=== PATIENT | male | born 1980 | race Caucasian/White ===

== ENCOUNTER 2016-08-31 08:16 | Emergency (ER) | payer MEDICAID ==
[~2016-08-31] VITALS: Wt 80.0 kg
[2016-08-31] MEDS ORDERED: NAPR-260 PO (08:38)
--- NOTE | 2016-08-31 08:46 | ERD ---
ER Documentation Chief Complaint Date/Time DATE: 08/31/16 TIME: 08:40 Chief Complaint BLUNT TRAUMA TO LEFT THIGH 4 DAYS AGO. NO DEFORMITY. HPI This a 36-year-old male who presents to the emergency department today complaining of a bump and some left thigh pain after running into the corner of a cabinet 4 days ago. Patient states he is taking Tylenol for pain. States he is able to walk but does have some pain. Denies any fevers or chills or previous trauma. ROS All systems reviewed and are negative except as per history of present illness. Medications Home Meds Active Scripts Naproxen* (Naprosyn*) 500 Mg Tablet, 500 MG PO BID Y for PAIN AND/OR INFLAMMATION, #30 TAB Prov:MANUELA PORTILLO PA-C 08/31/16 Physical Exam Vitals Vital Signs Date Time Temp Pulse Resp B/P Pulse Ox O2 Delivery O2 Flow Rate FiO2 08/31/16 08:20 98.0 74 20 148/78 98 Physical Exam Const: No acute distress Head: Atraumatic Eyes: Normal Conjunctiva ENT: Normal External Ears, Nose and Mouth. Neck: Full range of motion..~ No meningismus. Resp: Clear to auscultation bilaterally Cardio: Regular rate and rhythm, no murmurs Abd: Soft, non tender, non distended. Normal bowel sounds Skin: No petechiae or rashes MSK: Left leg with no obvious deformity. No effusion. No ecchymosis. One area at the superior portion of the rectus for Omar with palpable bump. Nontender remainder of femur. Full active range of motion at knee pulses 2+. Distal neurovascularly intact. Neur: Awake and alert Psych: Normal Mood and Affect Results 24 hrs Current Medications Medications (Trade) Dose Ordered Sig/Obdulia Route PRN Reason Start Time Stop Time Status Last Admin Dose Admin Acetaminophen/ Hydrocodone Bitart (Irvona (5/325)) 1 tab ONCE ONCE PO 08/31/16 09:00 08/31/16 09:01 Procedures/MDM This a 36-year-old male who presents to the emergency department today complaining of some left thigh pain and a bump on his left thigh after running into the corner of a cabinet 4 days ago. On physical exam patient has evidence of a palpable area of tissue that is likely a contusion. Patient does have full active range of motion at his knee and I have low suspicion for compartment syndrome, acute fracture dislocation. Do not feel the patient requires further workup or imaging at this time. Patient is able to ambulate although he has been using a crutch to help take some pressure off of his leg. I have explained to the patient that the contusion could be more problematic in the future given the area of location of pain and injury as it may create some hardness. Low suspicion for osteochondritis dissecans at this time given that his only been 4 days and patient does have full active range of motion at knee. Patient is afebrile and otherwise well-appearing. Low suspicion for septic joint. Patient was given Irvona here in the emergency department. He will be given a prescription for Naprosyn for home. He was instructed to ice the area and do some gentle stretching exercises. At this time the patient is stable for discharge and outpatient management. Patient should follow up with their PCP in the next 1-2 days. They may return to the emergency department sooner for any persistent or worsening of symptoms. Patient understood and agreed with the plan. Departure Diagnosis: Primary Impression: Injury of left leg Encounter type: initial encounter Qualified Code: S89.92XA - Injury of left leg, initial encounter Condition: Fair Patient Instructions: Contusion, Soft Tissue, Contusion, Lower Extremity [facility] Usted se encarnacion hecho un examen mdico de control que le indica que no est en alex condicin que requiera tratamiento urgente en el Departamento de Emergencia. Un estudio ms profundo y el tratamiento de baxter condicin pueden esperar sin ningn riesgo hasta que usted sea atendida/o en el consultorio de baxter mdico o alex cl christine. Es responsabilidad suya arreglar alex jean-pierre para el seguimiento del kala. MANEJO DE CONDICIONES NO URGENTES EN EL FUTURO 1) Si usted tiene un mdico de atencin primaria: Usted debera llamar a baxter mdico de atencin primaria antes de venir al departamento de emergencia. Despus de las horas de consultorio, baxter doctor o baxter asociado/a est disponible por telfono. El mdico o enfermero de alonso en el servicio telefnico puede asesorarle por caleb medio para atender el problema, o kala contrario se puede programar alex jean-pierre. 2) Si usted no tiene un mdico de atencin primaria: Llame al mdico o clnica de referencia que aparece abajo brad las horas de consultorio para hacer alex jean-pierre para que le vean. CLINICAS: [facility] [phone] [facility] [phone] [facility] [phone] [place] [phone] [place] [phone] [facility] [phone] [address] Additional Instructions: Llame al doctor MAANA y mauricio alex JEAN-PIERRE PARA DENTRO DE 1-2 DAIGLE.Dgale a la secretaria que nosotros le instruimos hacer esta jean-pierre.Avise o llame si baxter condicin se empeora antes de la jean-pierre. Regresa aqui si peor o no mejor. Take Naprosyn or Tylenol or Motrin for pain Apply ice to painful area and do stretching exercises MANUELA PORTILLO PA-C Aug 31, 2016 08:46
[2016-08-31] MEDS ORDERED: HYDROCODONE/APAP (5/325) TAB PO ONE (09:00)
== END 2016-08-31 09:14 | disposition home or self-care (01) ==
LOC: FTE 08:16
DX: S89.92XA Unspecified injury of left lower leg, initial encounter (principal); W22.8XXA Striking against or struck by other objects, initial encounter; Y92.9 Unspecified place or not applicable
CPT/HCPCS: 99283